=== PATIENT | female | born 1960 | race Caucasian/White ===

== ENCOUNTER 2019-04-25 16:09 | Emergency (ER) | payer OTHER ==
[2019-04-25] MEDS ORDERED: Bacitracin 1 PK ONE (16:30)
== END 2019-04-25 17:01 | disposition home or self-care (01) ==
LOC: SCSER 16:09
DX: S61.215A Laceration without foreign body of left ring finger without damage to nail, initial encounter (principal); S80.212A Abrasion, left knee, initial encounter; S90.811A Abrasion, right foot, initial encounter; I10 Essential (primary) hypertension; F17.210 Nicotine dependence, cigarettes, uncomplicated; W18.30XA Fall on same level, unspecified, initial encounter
CPT/HCPCS: 99282